=== PATIENT | male | born 2000 | race Caucasian/White ===

== ENCOUNTER 2021-02-13 12:55 | Emergency (ER) | payer OTHER, SELFPAY ==
--- NOTE | ~2021-02-13 | CT_ITS ---
EXAMINATION: CT ABDOMEN AND PELVIS WITH CONTRAST CLINICAL INFORMATION: Abdominal pain COMPARISON: CT scan abdomen pelvis 10/12/2017 TECHNIQUE: Multidetector volumetric images were obtained from the superior aspect of the liver through the pubic symphysis following administration 85 mL of Omnipaque 350 intravenous contrast. Sagittal and coronal reformatted images were obtained on the technologist's workstation. Oral contrast: No This CT examination was performed using dose optimization techniques as appropriate, variously including the following: *Automated exposure control *Adjustment of mA and/or kV according to patient size (this includes techniques or standardized protocols for targeted exams where dose is matched to indication/reason for exam; i.e. extremities or head) *Use of iterative reconstruction technique DLP: 259 mGy-cm FINDINGS: LUNG BASES: The visualized lung bases are unremarkable. LIVER, GALLBLADDER, AND BILIARY TREE: The liver is normal in size, shape, and attenuation. No focal hepatic lesion or biliary ductal dilatation is present. The gallbladder is unremarkable with no evidence of radiopaque gallstones, gallbladder wall thickening, or obvious pericholecystic inflammatory changes. PANCREAS: Unremarkable. SPLEEN: Unremarkable. ADRENAL GLANDS: Unremarkable. KIDNEYS AND URETERS: The kidneys are normal in size, shape, and attenuation. No hydronephrosis, hydroureter, or calculi seen. No perinephric stranding. BLADDER: Unremarkable. GASTROINTESTINAL TRACT: The appendix is not visualized. Cecum lies low in the pelvis. No acute changes of bowel. No bowel obstruction. No bowel wall thickening or edema. There is no inflammation the mesentery. No free air or free fluid. ABDOMINAL WALL: No significant hernia is appreciated. LYMPH NODES: Normal. VASCULAR: Unremarkable. PELVIC VISCERA: Unremarkable. OSSEOUS STRUCTURES: Unremarkable. CT/CT abdomen pelvis w con IMPRESSION: There is no acute abnormality CT scan abdomen pelvis.
[2021-02-13 13:08] VITALS: BP 118/67; PULSE 98; RESP 18; TEMP 37.1; O2SAT 100; BMI 18.2
[2021-02-13 16:20] VITALS: BP 110/61; PULSE 85; RESP 20; TEMP 37; O2SAT 98
--- NOTE | 2021-02-13 16:34 | PC.NURSE ---
pt c/o upper abd pain which is relieaved with supine position. was very anxious about iv. nausea and trying to induce vomiting but unsuccessful.
[2021-02-13 16:44] LABS: MANUAL DIFF FLAG NO
[2021-02-13 16:47] LABS: Basophils Percent Auto 0.1 % (0-2); Hematocrit 47.8 % (42-52); Hemoglobin 16.9 g/dl (14.0-18.0); Imm Gran Abs Auto 0.03 X10*3/uL (0.00-0.03); Imm Gran Pct Auto 0.3 % (0.0-0.4); Lymphocytes Percent Auto 9.3 % (20-40); Mean Corpuscular HGB Conc 35.4 g/dl (31.0-36.0); Mean Corpuscular Hemoglobin 31.4 pg (27.0-33.0); Mean Corpuscular Volume 88.7 fL (80-98); Mean Platelet Volume 11.6 fL (9.4-12.4); Monocytes Absolute Auto 0.4 X10*3/uL (0.1-1.2); Monocytes Percent Auto 3.6 % (2-11); Neutrophils Absolute Auto 9.3 X10*3/uL (2.0-8.3); Neutrophils Percent Auto 86.7 % (45-73); Platelet Count 213 X10*3/uL (160-400); Red Blood Count 5.39 X10*6/uL (4.60-5.80); Red Cell Distribution Width 12.2 % (11.0-16.0); White Blood Count 10.7 X10*3/uL (4.8-10.8)
[2021-02-13] MEDS: Ketorolac Tromethamine 30 MG/ML VIAL IVPUSH (16:48)
[2021-02-13] MEDS: 0.9 % Sodium Chloride 1,000 ML 999 ML IV (16:48)
[2021-02-13] MEDS: ondansetron HCL 4 MG/2 ML VIAL IVPUSH (16:49)
[2021-02-13 16:51] LABS: INTERNATIONAL NORM RATIO 1.2 (0.9-1.1); Prothrombin Time 14.6 SEC (10.8-13.0)
[2021-02-13 16:54] LABS: Partial Thromboplastin Time 34.1 SEC (24.1-38.0)
[2021-02-13 17:19] LABS: Alanine Aminotransferase 12 U/L (0-40); Albumin Level 5.1 g/dL (3.5-5.0); Alkaline Phosphatase 77 U/L (39-117); Anion Gap 19 (12-20); Aspartate Amino Transferase 15 U/L (5-37); Bilirubin Total 0.9 mg/dL (0.0-1.0); Blood Urea Nitrogen 7 mg/dL (9-16); Calcium 10.5 mg/dL (8.4-10.2); Carbon Dioxide 24 mmol/L (22-29); Chloride 104 mmol/L (96-108); Creatinine Clr Calc Pharmacy 100.5; Estimated Glomerular Filt Rate > 60; Glucose Random 103 mg/dL (60-115); Potassium 4.5 mmol/L (3.3-5.1); Sodium 142 mmol/L (135-145); Total Protein 8.2 g/dL (6.5-8.0)
--- NOTE | 2021-02-13 17:59 | ED_ITS ---
HPI - Nausea/Vomiting/Diarrhea General Chief complaint: Nausea/Vomiting/Diarrhea <JAZLYN Oro Last Filed: 02/13/21 18:08> Stated complaint: abd pain, nausea <JAZLYN Oro Last Filed: 02/13/21 18:08> Time Seen by Provider: 02/13/21 15:38 <JAZLYN Oro Last Filed: 02/13/21 18:08> Source: patient <JAZLYN Oro Last Filed: 02/13/21 18:08> Mode of arrival: ambulatory <JAZLYN Oro Last Filed: 02/13/21 18:08> Limitations: no limitations <JAZLYN Oro Last Filed: 02/13/21 18:08> History of Present Illness HPI Narrative: Patients present to the ED for abdominal pain and nausea since yesterday after eating pizza. patient states no fever, chills, dysuria, hematuria, flank pain, testicular pain, penile discharge, or penile lesions. <JAZLYN Oro Last Filed: 02/13/21 18:08> Associated nausea: Yes <JAZLYN Oro Last Filed: 02/13/21 18:08> Related Data Home medications: Previous Rx's Medication Instructions Recorded famotidine [Pepcid] 20 mg PO BID #10 tab 02/13/21 ketorolac 10 mg PO Q8H PRN #10 tab 02/13/21 ondansetron HCl [Zofran] 4 mg PO Q8H PRN #14 tab 02/13/21 <JAZLYN Oro Last Filed: 02/13/21 18:08> Allergies/Adverse reactions: Allergies Allergy/AdvReac Type Severity Reaction Status Date / Time No Known Allergies Allergy Unverified 06/19/20 17:07 <JAZLYN Oro Last Filed: 02/13/21 18:08> Review of Systems Review of Systems: Yes all other systems are reviewed and are negative <JAZLYN Oro Last Filed: 02/13/21 18:08> Constitutional: Constitutional: Reports as per HPI and Reports no additional constitutional complaints <JAZLYN Oro Last Filed: 02/13/21 18:08> Eyes: Eyes: Reports as per HPI and Reports no additional eye complaints <JAZLYN Oro Last Filed: 02/13/21 18:08> ENT: Reports system reviewed and no additional complaints, except as documented and Reports as per HPI <JAZLYN Oro Last Filed: 02/13/21 18:08> Cardiovascular: Cardiovascular: Reports as per HPI and Reports no additional cardiovascular complaints <JAZLYN Oro Last Filed: 02/13/21 18:08> Respiratory: Respiratory: Reports as per HPI and Reports no additional respiratory complaints <JAZLYN Oro Last Filed: 02/13/21 18:08> Gastrointestinal: Gastrointestinal: Reports as per HPI, Reports no additional gastrointestinal complaints, Reports abdominal pain, Reports nausea and Reports vomiting <JAZLYN Oro Last Filed: 02/13/21 18:08> Genitourinary: Genitourinary: Reports no additional male genitourinary complaints and Reports as per HPI <JAZLYN Oro Last Filed: 02/13/21 18:08> Musculoskeletal: Musculoskeletal: Reports no additional musculoskeletal complaints and Reports as per HPI <JAZLYN Oro Last Filed: 02/13/21 18:08> Neurologic: Reports system reviewed and no additional complaints, except as documented and Reports as per HPI <JAZLYN Oro Last Filed: 02/13/21 18:08> Psychiatric: Psychiatric: Reports no additional psychiatric complaints and Reports as per HPI <JAZLYN Oro Last Filed: 02/13/21 18:08> [facility] Past Medical History Medical History: Medical History (Updated 02/14/21 @ 00:01 by Ida Knutson) No acute medical problems <JAZLYN Oro Last Filed: 02/13/21 18:08> Surgical History: Surgical History (Updated 02/13/21 @ 13:12 by Reta Hughes) No history of previous surgery <JAZLYN Oro Last Filed: 02/13/21 18:08> Social History Social History: Social History Alcohol intake: never Smoked in Last 30 Days: No Use of substances other than those prescribed or required for medical reasons: Yes Substance Use Type: Marijuana Advance Directives: No Advance Directives Information Provided: No <JAZLYN Oro - Last Filed: 02/13/21 18:08> Physical Exam Vital Signs: Vital Signs: Last Vital Signs Temp 98.6 F 02/13/21 16:20 Pulse 85 02/13/21 16:20 Resp 20 02/13/21 16:20 BP 110/61 02/13/21 16:20 Pulse Ox 98 02/13/21 16:20 Body Mass Index 18.2 <JAZLYN Oro - Last Filed: 02/13/21 18:08> Vital Signs: Last Vital Signs Temp 98.6 F 02/13/21 16:20 Pulse 85 02/13/21 16:20 Resp 20 02/13/21 16:20 BP 110/61 02/13/21 16:20 Pulse Ox 98 02/13/21 16:20 Body Mass Index 18.2 <JAZLYN Nelson - Last Filed: 02/13/21 19:34> Vital Signs: Last Vital Signs Temp 98.6 F 02/13/21 16:20 Pulse 85 02/13/21 16:20 Resp 20 02/13/21 16:20 BP 110/61 02/13/21 16:20 Pulse Ox 98 02/13/21 16:20 Body Mass Index 18.2 <Jeremias Sams MD - Last Filed: 03/09/21 07:11> Const: General: cooperative, healthy appearing, comfortable, no acute distress, well developed and alert <JAZLYN Oro - Last Filed: 02/13/21 18:08> Orientation/consciousness: patient oriented x3 <JAZLYN Oro - Last Filed: 02/13/21 18:08> HENMT: Head: Yes normal to inspection, Yes No palpable skull fracture present, Yes normocephalic and Yes atraumatic <JAZLYN Oro - Last Filed: 02/13/21 18:08> Eyes: General: appearance normal, both eyes and all related structures <JAZLYN French - Last Filed: 02/13/21 18:08> Neck: Neck: Yes normal visual inspection, Yes full ROM, Yes no lymphadenopathy, Yes no meningeal signs, Yes trachea midline, Yes supple and No tender <JAZLYN Oro - Last Filed: 02/13/21 18:08> Chest: Chest palpation & inspection: normal inspection of the chest and normal palpation of entire chest wall <JAZLYN Oro García Last Filed: 02/13/21 18:08> Resp: Effort & Inspection: normal respiratory effort and able to speak in complete sentences <JAZLYN Oro Last Filed: 02/13/21 18:08> Auscultation: clear to auscultation bilaterally <JAZLYN Oro García Last Filed: 02/13/21 18:08> Cardio: Jugular venous distension: no JVD <JAZLYN Oro García Last Filed: 02/13/21 18:08> Heart sounds: S1 normal heart sound present and S2 normal heart sound present <JAZLYN Oro Last Filed: 02/13/21 18:08> GI: Inspection: Yes normal to inspection and No abdominal wall ecchymosis <JAZLYN Oro García Last Filed: 02/13/21 18:08> Palpation (GI): Soft to palpation, not firm, Tenderness to palpation present (GI) in the epigastrum, in the LLQ, in the RLQ, in the LUQ and in the RUQ; not at McBurney's point, not periumbilically, not suprapubicly, Telles's sign negative, obturator sign negative, psoas sign negative, with no rebound tenderness and Rovsing's sign negative, no guarding and not rigid <JAZLYN Oro García Last Filed: 02/13/21 18:08> : General: No CVA tenderness and Yes no CVA tenderness <JAZLYN Oro García Last Filed: 02/13/21 18:08> Back/Spine/Pelvis: Back: no CVA tenderness, No CVA tenderness and No back tenderness <JAZLYN Oro García Last Filed: 02/13/21 18:08> Skin: General skin exam: no rashes or lesions noted and elasticity normal <JAZLYN Oro Last Filed: 02/13/21 18:08> Neuro: General: patient oriented x3, gait normal, no meningeal signs and CN's II-XI intact bilaterally <JAZLYN Oro Last Filed: 02/13/21 18:08> Cranial nerves: Yes CN's II-XII intact bilaterally <JAZLYN Oro - Last Filed: 02/13/21 18:08> Extrem: General: Yes normal to inspection and Yes full ROM <JAZLYN Oro - Last Filed: 02/13/21 18:08> Psych: Appearance: grossly normal, well kempt and not disheveled <JAZLYN Oro - Last Filed: 02/13/21 18:08> Course Course Course Narrative: Patient will have labs <JAZLYN Oro Last Filed: 02/13/21 18:08> 7:30pm - sign-out from [facility]. Labs within normal limits including lipase less than 4. UA within normal limits no evidence of UTI. COVID swab negative. Patient's CT scan of abdomen and pelvis negative for any acute processes. Will DC home with symptomatic treatment instructions return if any new or worsening symptoms to follow up with primary care provider. Patient understands agrees with this plan. <JAZLYN Nelson - Last Filed: 02/13/21 19:34> I have reviewed the chart <Jeremias Sams MD - Last Filed: 03/09/21 07:11> Reevaluation(s) Reevaluation #1: patient labs ate baseline. will order CT. awaiting UA and covid. patient received toradol, IV fluids, and zofran. signed out to JAZLYN rosen <JAZLYN Oro - Last Filed: 02/13/21 18:08> MDM - Nausea/Vomiting/Diarrhea MDM Narrative Medical decision making narrative: Abdominal pain <JAZLYN Oro - Last Filed: 02/13/21 18:08> Medical Records Attestation: I reviewed the patient's medical records. <JAZLYN Nelson - Last Filed: 02/13/21 19:34> Lab Data Attestation: I reviewed the patient's lab results. <JAZLYN Nelson - Last Filed: 02/13/21 19:34> Result diagrams: : 02/13/21 16:35 02/13/21 16:35 <JAZLYN Oro Last Filed: 02/13/21 18:08> Labs: Lab Results 02/13/21 02/13/21 02/13/21 Range/Units 16:35 16:35 16:35 WBC 10.7 (4.8-10.8) X10*3/uL RBC 5.39 (4.60-5.80) X10*6/uL Hgb 16.9 (14.0-18.0) g/dl Hct 47.8 (42-52) % MCV 88.7 (80-98) fL MCH 31.4 (27.0-33.0) pg MCHC 35.4 (31.0-36.0) g/dl RDW 12.2 (11.0-16.0) % Plt Count 213 (160-400) X10*3/uL MPV 11.6 (9.4-12.4) fL Immature Gran % (Auto) 0.3 (0.0-0.4) % Neut % (Auto) 86.7 H (45-73) % Lymph % (Auto) 9.3 L (20-40) % [place] % (Auto) 3.6 (2-11) % Eos % (Auto) 0.0 (0-4) % Baso % (Auto) 0.1 (0-2) % Lymph # (Auto) 1.0 L (1.2-4.9) X10*3/uL [place] # (Auto) 0.4 (0.1-1.2) X10*3/uL Eos # (Auto) 0.0 (0.0-0.4) X10*3/uL Baso # (Auto) 0.0 (0.0-0.2) X10*3/uL Abs Immat Gran (auto) 0.03 (0.00-0.03) X10*3/uL Absolute Neuts (auto) 9.3 H (2.0-8.3) X10*3/uL Absolute Nucleated RBC 0.000 (0.0-0.012) X10*3/uL Nucleated RBC % (auto) 0.0 (0.0-0.2) /100WBC PT 14.6 H (10.8-13.0) SEC INR 1.2 H (0.9-1.1) APTT 34.1 (24.1-38.0) SEC Sodium 142 (135-145) mmol/L Potassium 4.5 (3.3-5.1) mmol/L Chloride 104 (96-108) mmol/L Carbon Dioxide 24 (22-29) mmol/L Anion Gap 19 (12-20) BUN 7 L (9-16) mg/dL Creatinine 0.91 (0.5-1.4) mg/dL Estim Creat Clear Calc 100.5 Estimated GFR > 60 Random Glucose 103 (60-115) mg/dL Calcium 10.5 H (8.4-10.2) mg/dL Total Bilirubin 0.9 (0.0-1.0) mg/dL AST 15 (5-37) U/L ALT 12 (0-40) U/L Alkaline Phosphatase 77 (39-117) U/L Total Protein 8.2 H (6.5-8.0) g/dL Albumin 5.1 H (3.5-5.0) g/dL Lipase < 4 L (8-78) U/L Urine Color Urine Appearance Urine pH (5.0-8.0) Ur Specific [place] (1.005-1.025) Urine Protein (NEG-TRACE) MG/DL Urine Glucose (UA) (NEG) MG/DL Urine Ketones (NEG) MG/DL Urine Blood (NEG) Urine Nitrite (NEG) Ur Leukocyte Esterase (NEG) COVID-19 ([facility]) (Negative) COVID-19 Clin Com 02/13/21 02/13/21 Range/Units 18:29 18:29 WBC (4.8-10.8) X10*3/uL RBC (4.60-5.80) X10*6/uL Hgb (14.0-18.0) g/dl Hct (42-52) % MCV (80-98) fL MCH (27.0-33.0) pg MCHC (31.0-36.0) g/dl RDW (11.0-16.0) % Plt Count (160-400) X10*3/uL MPV (9.4-12.4) fL Immature Gran % (Auto) (0.0-0.4) % Neut % (Auto) (45-73) % Lymph % (Auto) (20-40) % [place] % (Auto) (2-11) % Eos % (Auto) (0-4) % Baso % (Auto) (0-2) % Lymph # (Auto) (1.2-4.9) X10*3/uL [place] # (Auto) (0.1-1.2) X10*3/uL Eos # (Auto) (0.0-0.4) X10*3/uL Baso # (Auto) (0.0-0.2) X10*3/uL Abs Immat Gran (auto) (0.00-0.03) X10*3/uL Absolute Neuts (auto) (2.0-8.3) X10*3/uL Absolute Nucleated RBC (0.0-0.012) X10*3/uL Nucleated RBC % (auto) (0.0-0.2) /100WBC PT (10.8-13.0) SEC INR (0.9-1.1) APTT (24.1-38.0) SEC Sodium (135-145) mmol/L Potassium (3.3-5.1) mmol/L Chloride (96-108) mmol/L Carbon Dioxide (22-29) mmol/L Anion Gap (12-20) BUN (9-16) mg/dL Creatinine (0.5-1.4) mg/dL Estim Creat Clear Calc Estimated GFR Random Glucose (60-115) mg/dL Calcium (8.4-10.2) mg/dL Total Bilirubin (0.0-1.0) mg/dL AST (5-37) U/L ALT (0-40) U/L Alkaline Phosphatase (39-117) U/L Total Protein (6.5-8.0) g/dL Albumin (3.5-5.0) g/dL Lipase (8-78) U/L Urine Color YELLOW Urine Appearance CLEAR Urine pH 7.5 (5.0-8.0) Ur Specific [place] 1.015 (1.005-1.025) Urine Protein NEG (NEG-TRACE) MG/DL Urine Glucose (UA) NEG (NEG) MG/DL Urine Ketones 15 (NEG) MG/DL Urine Blood NEG (NEG) Urine Nitrite NEG (NEG) Ur Leukocyte Esterase NEG (NEG) COVID-19 ([facility]) Negative (Negative) COVID-19 Clin Com See Note <JAZLYN Oro - Last Filed: 02/13/21 18:08> Lab Results 02/13/21 02/13/21 02/13/21 Range/Units 16:35 16:35 16:35 WBC 10.7 (4.8-10.8) X10*3/uL RBC 5.39 (4.60-5.80) X10*6/uL Hgb 16.9 (14.0-18.0) g/dl Hct 47.8 (42-52) % MCV 88.7 (80-98) fL MCH 31.4 (27.0-33.0) pg MCHC 35.4 (31.0-36.0) g/dl RDW 12.2 (11.0-16.0) % Plt Count 213 (160-400) X10*3/uL MPV 11.6 (9.4-12.4) fL Immature Gran % (Auto) 0.3 (0.0-0.4) % Neut % (Auto) 86.7 H (45-73) % Lymph % (Auto) 9.3 L (20-40) % [place] % (Auto) 3.6 (2-11) % Eos % (Auto) 0.0 (0-4) % Baso % (Auto) 0.1 (0-2) % Lymph # (Auto) 1.0 L (1.2-4.9) X10*3/uL [place] # (Auto) 0.4 (0.1-1.2) X10*3/uL Eos # (Auto) 0.0 (0.0-0.4) X10*3/uL Baso # (Auto) 0.0 (0.0-0.2) X10*3/uL Abs Immat Gran (auto) 0.03 (0.00-0.03) X10*3/uL Absolute Neuts (auto) 9.3 H (2.0-8.3) X10*3/uL Absolute Nucleated RBC 0.000 (0.0-0.012) X10*3/uL Nucleated RBC % (auto) 0.0 (0.0-0.2) /100WBC PT 14.6 H (10.8-13.0) SEC INR 1.2 H (0.9-1.1) APTT 34.1 (24.1-38.0) SEC Sodium 142 (135-145) mmol/L Potassium 4.5 (3.3-5.1) mmol/L Chloride 104 (96-108) mmol/L Carbon Dioxide 24 (22-29) mmol/L Anion Gap 19 (12-20) BUN 7 L (9-16) mg/dL Creatinine 0.91 (0.5-1.4) mg/dL Estim Creat Clear Calc 100.5 Estimated GFR > 60 Random Glucose 103 (60-115) mg/dL Calcium 10.5 H (8.4-10.2) mg/dL Total Bilirubin 0.9 (0.0-1.0) mg/dL AST 15 (5-37) U/L ALT 12 (0-40) U/L Alkaline Phosphatase 77 (39-117) U/L Total Protein 8.2 H (6.5-8.0) g/dL Albumin 5.1 H (3.5-5.0) g/dL Lipase < 4 L (8-78) U/L Urine Color Urine Appearance Urine pH (5.0-8.0) Ur Specific [place] (1.005-1.025) Urine Protein (NEG-TRACE) MG/DL Urine Glucose (UA) (NEG) MG/DL Urine Ketones (NEG) MG/DL Urine Blood (NEG) Urine Nitrite (NEG) Ur Leukocyte Esterase (NEG) COVID-19 ([facility]) (Negative) COVID-19 Clin Com 02/13/21 02/13/21 Range/Units 18:29 18:29 WBC (4.8-10.8) X10*3/uL RBC (4.60-5.80) X10*6/uL Hgb (14.0-18.0) g/dl Hct (42-52) % MCV (80-98) fL MCH (27.0-33.0) pg MCHC (31.0-36.0) g/dl RDW (11.0-16.0) % Plt Count (160-400) X10*3/uL MPV (9.4-12.4) fL Immature Gran % (Auto) (0.0-0.4) % Neut % (Auto) (45-73) % Lymph % (Auto) (20-40) % [place] % (Auto) (2-11) % Eos % (Auto) (0-4) % Baso % (Auto) (0-2) % Lymph # (Auto) (1.2-4.9) X10*3/uL [place] # (Auto) (0.1-1.2) X10*3/uL Eos # (Auto) (0.0-0.4) X10*3/uL Baso # (Auto) (0.0-0.2) X10*3/uL Abs Immat Gran (auto) (0.00-0.03) X10*3/uL Absolute Neuts (auto) (2.0-8.3) X10*3/uL Absolute Nucleated RBC (0.0-0.012) X10*3/uL Nucleated RBC % (auto) (0.0-0.2) /100WBC PT (10.8-13.0) SEC INR (0.9-1.1) APTT (24.1-38.0) SEC Sodium (135-145) mmol/L Potassium (3.3-5.1) mmol/L Chloride (96-108) mmol/L Carbon Dioxide (22-29) mmol/L Anion Gap (12-20) BUN (9-16) mg/dL Creatinine (0.5-1.4) mg/dL Estim Creat Clear Calc Estimated GFR Random Glucose (60-115) mg/dL Calcium (8.4-10.2) mg/dL Total Bilirubin (0.0-1.0) mg/dL AST (5-37) U/L ALT (0-40) U/L Alkaline Phosphatase (39-117) U/L Total Protein (6.5-8.0) g/dL Albumin (3.5-5.0) g/dL Lipase (8-78) U/L Urine Color YELLOW Urine Appearance CLEAR Urine pH 7.5 (5.0-8.0) Ur Specific [place] 1.015 (1.005-1.025) Urine Protein NEG (NEG-TRACE) MG/DL Urine Glucose (UA) NEG (NEG) MG/DL Urine Ketones 15 (NEG) MG/DL Urine Blood NEG (NEG) Urine Nitrite NEG (NEG) Ur Leukocyte Esterase NEG (NEG) COVID-19 ([facility]) Negative (Negative) COVID-19 Clin Com See Note <JAZLYN Nelson - Last Filed: 05/14/21 19:34> Lab Results 02/13/21 02/13/21 02/13/21 Range/Units 16:35 16:35 16:35 WBC 10.7 (4.8-10.8) X10*3/uL RBC 5.39 (4.60-5.80) X10*6/uL Hgb 16.9 (14.0-18.0) g/dl Hct 47.8 (42-52) % MCV 88.7 (80-98) fL MCH 31.4 (27.0-33.0) pg MCHC 35.4 (31.0-36.0) g/dl RDW 12.2 (11.0-16.0) % Plt Count 213 (160-400) X10*3/uL MPV 11.6 (9.4-12.4) fL Immature Gran % (Auto) 0.3 (0.0-0.4) % Neut % (Auto) 86.7 H (45-73) % Lymph % (Auto) 9.3 L (20-40) % [place] % (Auto) 3.6 (2-11) % Eos % (Auto) 0.0 (0-4) % Baso % (Auto) 0.1 (0-2) % Lymph # (Auto) 1.0 L (1.2-4.9) X10*3/uL [place] # (Auto) 0.4 (0.1-1.2) X10*3/uL Eos # (Auto) 0.0 (0.0-0.4) X10*3/uL Baso # (Auto) 0.0 (0.0-0.2) X10*3/uL Abs Immat Gran (auto) 0.03 (0.00-0.03) X10*3/uL Absolute Neuts (auto) 9.3 H (2.0-8.3) X10*3/uL Absolute Nucleated RBC 0.000 (0.0-0.012) X10*3/uL Nucleated RBC % (auto) 0.0 (0.0-0.2) /100WBC PT 14.6 H (10.8-13.0) SEC INR 1.2 H (0.9-1.1) APTT 34.1 (24.1-38.0) SEC Sodium 142 (135-145) mmol/L Potassium 4.5 (3.3-5.1) mmol/L Chloride 104 (96-108) mmol/L Carbon Dioxide 24 (22-29) mmol/L Anion Gap 19 (12-20) BUN 7 L (9-16) mg/dL Creatinine 0.91 (0.5-1.4) mg/dL Estim Creat Clear Calc 100.5 Estimated GFR > 60 Random Glucose 103 (60-115) mg/dL Calcium 10.5 H (8.4-10.2) mg/dL Total Bilirubin 0.9 (0.0-1.0) mg/dL AST 15 (5-37) U/L ALT 12 (0-40) U/L Alkaline Phosphatase 77 (39-117) U/L Total Protein 8.2 H (6.5-8.0) g/dL Albumin 5.1 H (3.5-5.0) g/dL Lipase < 4 L (8-78) U/L Urine Color Urine Appearance Urine pH (5.0-8.0) Ur Specific [place] (1.005-1.025) Urine Protein (NEG-TRACE) MG/DL Urine Glucose (UA) (NEG) MG/DL Urine Ketones (NEG) MG/DL Urine Blood (NEG) Urine Nitrite (NEG) Ur Leukocyte Esterase (NEG) COVID-19 ([facility]) (Negative) COVID-19 Clin Com 02/13/21 02/13/21 Range/Units 18:29 18:29 WBC (4.8-10.8) X10*3/uL RBC (4.60-5.80) X10*6/uL Hgb (14.0-18.0) g/dl Hct (42-52) % MCV (80-98) fL MCH (27.0-33.0) pg MCHC (31.0-36.0) g/dl RDW (11.0-16.0) % Plt Count (160-400) X10*3/uL MPV (9.4-12.4) fL Immature Gran % (Auto) (0.0-0.4) % Neut % (Auto) (45-73) % Lymph % (Auto) (20-40) % [place] % (Auto) (2-11) % Eos % (Auto) (0-4) % Baso % (Auto) (0-2) % Lymph # (Auto) (1.2-4.9) X10*3/uL [place] # (Auto) (0.1-1.2) X10*3/uL Eos # (Auto) (0.0-0.4) X10*3/uL Baso # (Auto) (0.0-0.2) X10*3/uL Abs Immat Gran (auto) (0.00-0.03) X10*3/uL Absolute Neuts (auto) (2.0-8.3) X10*3/uL Absolute Nucleated RBC (0.0-0.012) X10*3/uL Nucleated RBC % (auto) (0.0-0.2) /100WBC PT (10.8-13.0) SEC INR (0.9-1.1) APTT (24.1-38.0) SEC Sodium (135-145) mmol/L Potassium (3.3-5.1) mmol/L Chloride (96-108) mmol/L Carbon Dioxide (22-29) mmol/L Anion Gap (12-20) BUN (9-16) mg/dL Creatinine (0.5-1.4) mg/dL Estim Creat Clear Calc Estimated GFR Random Glucose (60-115) mg/dL Calcium (8.4-10.2) mg/dL Total Bilirubin (0.0-1.0) mg/dL AST (5-37) U/L ALT (0-40) U/L Alkaline Phosphatase (39-117) U/L Total Protein (6.5-8.0) g/dL Albumin (3.5-5.0) g/dL Lipase (8-78) U/L Urine Color YELLOW Urine Appearance CLEAR Urine pH 7.5 (5.0-8.0) Ur Specific [place] 1.015 (1.005-1.025) Urine Protein NEG (NEG-TRACE) MG/DL Urine Glucose (UA) NEG (NEG) MG/DL Urine Ketones 15 (NEG) MG/DL Urine Blood NEG (NEG) Urine Nitrite NEG (NEG) Ur Leukocyte Esterase NEG (NEG) COVID-19 ([facility]) Negative (Negative) COVID-19 Clin Com See Note <Jeremias Sams MD - Last Filed: 03/09/21 07:11> Imaging Data CT scan of abdomen and pelvis with IV contrast: Attestation: I personally reviewed and interpreted this imaging study as follows: <JAZLYN Nelson - Last Filed: 02/13/21 19:34> Radiologist's impression: FINDINGS: LUNG BASES: The visualized lung bases are unremarkable. LIVER, GALLBLADDER, AND BILIARY TREE: The liver is normal in size, shape, and attenuation. No focal hepatic lesion or biliary ductal dilatation is present. The gallbladder is unremarkable with no evidence of radiopaque gallstones, gallbladder wall thickening, or obvious pericholecystic inflammatory changes. PANCREAS: Unremarkable. SPLEEN: Unremarkable. ADRENAL GLANDS: Unremarkable. KIDNEYS AND URETERS: The kidneys are normal in size, shape, and attenuation. No hydronephrosis, hydroureter, or calculi seen. No perinephric stranding. BLADDER: Unremarkable. GASTROINTESTINAL TRACT: The appendix is not visualized. Cecum lies low in the pelvis. No acute changes of bowel. No bowel obstruction. No bowel wall thickening or edema. There is no inflammation the mesentery. No free air or free fluid. ABDOMINAL WALL: No significant hernia is appreciated. LYMPH NODES: Normal. VASCULAR: Unremarkable. PELVIC VISCERA: Unremarkable. OSSEOUS STRUCTURES: Unremarkable. CT/CT abdomen pelvis w con IMPRESSION: There is no acute abnormality CT scan abdomen pelvis. <JAZLYN Nelson - Last Filed: 02/13/21 19:34> Discharge Plan Discharge Clinical Impression: Food poisoning <JAZLYN Oro - Last Filed: 02/13/21 18:08> Patient Disposition: Home, Self-Care <JAZLYN Oro Last Filed: 02/13/21 18:08> Instructions: Food Poisoning (ED) <JAZLYN Oro Last Filed: 02/13/21 18:08> Prescriptions: New ondansetron HCl [Zofran] 4 mg tablet 4 mg PO Q8H PRN (Reason: nausea and vomiting) Qty: 14 RF: 0 famotidine [Pepcid] 20 mg tablet 20 mg PO BID Qty: 10 RF: 0 ketorolac 10 mg tablet 10 mg PO Q8H PRN (Reason: pain) Qty: 10 RF: 0 <JAZLYN Oro - Last Filed: 02/13/21 18:08> Referrals: Mely Dale MD [Primary Care Provider] - 2 days <JAZLYN Oro - Last Filed: 02/13/21 18:08> Stand Alone Forms: Work/School Release <JAZLYN Oro - Last Filed: 02/13/21 18:08> Interventions: ED Discharge Assessment Last Done: 02/13/21 19:48 <JAZLYN Oro - Last Filed: 02/13/21 18:08> Discharge Date/Time: 02/13/21 19:50 <JAZLYN Oro - Last Filed: 02/13/21 18:08> Print Language: Vietnamese <JAZLYN Oro - Last Filed: 02/13/21 18:08>
[2021-02-13 18:24] LABS: Lipase < 4 U/L (8-78)
[2021-02-13] MEDS: iohexoL 350 MG/ML 100 ML INFUS..BTL IV (18:25)
[2021-02-13 18:38] LABS: Appearance Urine CLEAR; Color Urine YELLOW; Glucose Urine UA NEG (NEG); Leukocyte Esterase Urine NEG (NEG); Nitrite Urine NEG (NEG); PH 7.5 (5.0-8.0); Specific Gravity - Urine 1.015 (1.005-1.025); Urine Blood NEG (NEG); Urine Ketones 15 MG/DL (NEG); Urine Protein NEG (NEG-TRACE)
[2021-02-13 18:52] LABS: COVID-19 Test Negative (Negative)
== END 2021-02-13 19:50 | disposition home or self-care (01) ==
PROVIDERS: Physician Assistant; Emergency Provider Emergency Medicine; PCP Pediatrics
DX: A05.9 Bacterial foodborne intoxication, unspecified (principal); R10.9 Unspecified abdominal pain; R11.0 Nausea; Z79.899 Other long term (current) drug therapy; Z20.822 Contact with and (suspected) exposure to COVID-19
CPT/HCPCS: 36415; 74177; 80053; 81003; 83690; 85025; 85610; 85730; 87635; 96365; 96375; 99284; J1885; J2405; Q9967